=== PATIENT | female | born 1955 | race Caucasian/White ===

== ENCOUNTER 2016-10-19 12:21 | Inpatient (IN) | payer MEDICARE ==
[~2016-10-19] VITALS: Ht 170.2 cm; Wt 99.8 kg
[2016-10-19 12:30] VITALS: BP 154/94
--- NOTE | 2016-10-19 12:30 | NUR ---
[id number]: PT IS 61 YEARS OLD FEMALE ADMITTED ON 515 WITH A HISTORY OF BIPOLAR WITH PSYCHOTIC FEATURES AND HAD 4 PRIOR SUICIDE ATTEMPTS. PT REPORTS THAT FOR THE PAST WEEK, SHE HAS INCREASINGLY PARANOID. ACCORDING TO HISTORY AND PHYSICAL [facility] SUICIDAL IDEATION WITH A PLAN TO EITHER OD ON MEDICATIONS MD JUMP OFF A BUILDING. UPON PPBP-BV-SPEC ASSESSMENT PT IS OBSERVED TEARFUL, RESTLESS, ANXIOUS, WORRIED ABOUT HOSPITALIZATION. EXPLAINED PT THE PROCESS OF HOSPITALIZATION AND ESCORTED PT AROUND THE UNIT. PROVIDED WITH PT'S RIGHT BOOKLET, AND ADVISEMENT. EXPLAINED MEAL TIMES AND FRESH AIR SCHEDULE. NOTIFIED DR. WINNIE LEARY AND DR. POMPA. PT HAS BIPOLAR DISORDER, CANCER HPV, BREAST CANCER, ANXIETY, DEPRESSION, BROKEN CLAVICLE, GERD, HTN. PT IS ALLERGIC ABILIFY, ERICDON, EUFEMIAIEN, LATUDA. BELONGINGS STORED AND DOCUMENTED. PT DOES WANT TO NOTIFY FAMILY. ALL PAPERWORK AND COMPUTER DOCUMENTATION COMPLETE. WILL ENDORSE TO INCOMING NURSE TO DOUBLE CHECK ALL PAPERWORK AND COMPUTER DOCUMENTATION.
[2016-10-19] MEDS ORDERED: LORAZEPAM 0.5 MG TABLET PO PRN (13:00)
[2016-10-19] MEDS ORDERED: TEMAZEPAM 7.5 MG CAPSULE PO PRN (13:00)
[2016-10-19] MEDS ORDERED: ACETAMINOPHEN 325 MG TABLET PO PRN (13:00)
[2016-10-19] MEDS ORDERED: MAG HYDROX/AL HYDROX/SIMETH 30 ML UDC PO PRN (13:00)
[2016-10-19] MEDS ORDERED: MAGNESIUM HYDROXIDE 30 ML UDC PO PRN (13:00)
[2016-10-19] MEDS ORDERED: HYDR-552 PO (14:18)
[2016-10-19] MEDS ORDERED: DIVA500T7 PO (14:18)
[2016-10-19] MEDS ORDERED: GABA600T2 PO (14:18)
[2016-10-19] MEDS ORDERED: LAMO25TA PO (14:20)
[2016-10-19] MEDS ORDERED: QUET25TA PO (14:20)
[2016-10-19] MEDS ORDERED: TRAZ-144 PO (14:20)
[2016-10-19 16:00] VITALS: BP 132/83
[2016-10-19 20:00] VITALS: BP 132/86
[2016-10-19 20:49] VITALS: BP 132/86
[2016-10-19] MEDS: QUETIAPINE FUMARATE 100 MG TABLET PO SCH (21:20)
[2016-10-19] MEDS: HYDROCODONE/APAP 5/325MG 1 EACH TABLET PO PRN (21:26)
[2016-10-19] MEDS ORDERED: DIVALPROEX SODIUM 500 MG TABLET.DR PO SCH (22:00)
[2016-10-20] MEDS: HYDROCODONE/APAP 5/325MG 1 EACH TABLET PO PRN (04:00)
[2016-10-20 07:09] LABS: ALBUMIN 3.7 g/dL (3.4-5.0); BILIRUBIN,TOTAL 0.3 mg/dL (0.2-1.0); CALCIUM, SERUM 9.3 mg/dL (8.5-10.1); TOTAL PROTEIN, SERUM 7.2 g/dL (6.4-8.2)
[2016-10-20 08:00] VITALS: BP 136/85
[2016-10-20 16:00] VITALS: BP 115/88
[2016-10-20 16:10] VITALS: BP 115/88
--- NOTE | 2016-10-20 19:40 | NUR ---
RN OPENING NOTES RECEIVED REPORT FROM DAYSHIFT RN. FOUND Pt AWAKE, RESTING IN BED. NO S/S OF ACUTE DISTRESS OR SOB NOTED. Pt IS A/OX3, CONTINENT, AMBULATORY, VERBAL, ABLE TO MAKE NEEDS KNOWN. MED COMPLIANT. DC PLANNING TOMORROW AM. SAFETY MEASURES IN PLACE. BED LOW, LOCKED, HOB ELEVATED, SIDE RAILS UP. WILL CONTINUE TO MONITOR Pt THROUGHOUT THE NIGHT FOR SAFETY.
[2016-10-20 20:00] VITALS: BP 116/69
[2016-10-20] MEDS: QUETIAPINE FUMARATE 100 MG TABLET PO SCH (21:50)
[2016-10-20] MEDS ORDERED: DIVALPROEX SODIUM 500 MG TABLET.DR PO SCH (22:00)
--- NOTE | 2016-10-21 06:55 | NUR ---
RN CLOSING NOTES NO SIGNIFICANT CHANGES DURING THE NIGHT. NO S/S OF ACUTE DISTRESS OR SOB NOTED DURING THE SHIFT. ALL NEEDS MET AND ATTENDED TO. SAFETY MEASURES CARRIED OUT. WILL ENDORSE TO DAYSHIFT RN FOR Pt's [place] AND SAFETY.
[2016-10-21 08:00] VITALS: BP 118/87
--- NOTE | 2016-10-21 08:25 | NUR ---
[employer]PS RUBBER BOOTS AND SHOES REPAIRER: NOTES PT ANXIOUSLY WANTING TO LEAVE TODAY. CN CALLED DR. POMPA WITH ORDER TO D'C HOLD AND DISCHARGE TO [facility]. PER PT SHE DOESN'T NEED THE PRESCRIPTION FOR [place]. ORDER CARRIED OUT BY CN AND ORDER ACKNOWLEDGED.
--- NOTE | 2016-10-21 09:05 | NUR ---
[employer] ACCESS SERVICES REPRESENTATIVE: NOTES DR. LEARY NOTIFIED BY CN RE: D'C BACK TO [facility]. PT REQUEST FOR A VOUCHER AND OVEN HEATER TO PROVIDE VOUCHER. WILL MONITOR.
--- NOTE | 2016-10-21 09:30 | NUR ---
GPS JUKEBOX CHECKER: D'C INSTRUCTIONS DISCHARGED INSTRUCTIONS GIVEN WITH PRESCRIPTIONS AND VERBALIZED UNDERSTANDING. PT DOESN'T WANT HER BROTHER (AYALA) TO BE CALLED, STATED, "NO I DON'T WANT HIM CALLED BECAUSE HE DIDN'T EVEN KNOW THAT I WAS HERE, I WILL CALL HIM MYSELF LATER."
--- NOTE | 2016-10-21 10:10 | NUR ---
[employer]PS WORKERS COMPENSATION ANALYST: DISCHARGED PT STABLE FOR DISCHARGED, DENIES SI/HI AT TIME OF DISCHARGE. DISCHARGED TO HOME ([facility]) VIA TAXI WITH VOUCHER IN HAND WITH ALL BELONGING/VALUABLES AND MEDICATIONS IN STABLE CONDITION.
--- NOTE | 2016-10-21 14:33 | NUR ---
Initial DC Plan: Patient was currently residing at [address] [phone] . Patient stated that she wanted to return to [facility]. SW contacted the facility and administration stated that she can return upon discharge. SW will follow- up with patient and MD regarding most appropriate discharge plan and will help form a safe and proper discharge. Patient discharged 10/21/2016 to [facility].
--- NOTE | 2016-10-21 14:39 | NUR ---
Psychosocial assessment was reviewed and I concur with the information provided. No changes are necessary. Vinny Nieves, PRN OCCUPATIONAL THERAPIST [id number] Addendum: 10/21/16 at 1439 by VINNY NIEVES SW Amended: Links added.
--- NOTE | 2016-10-21 15:09 | NUR ---
Discharge Note: Patient returned back to [address] [place], [place] [phone] via taxi. Patient denied S/H ideations and V/A hallucinations upon discharge. Patient agreed to follow-up with her psychiatrist. Facilitated info to IDT team who are in agreement with discharge arrangement. The multidisciplinary exitcare form was done, printed, signed, and given to the patient.
== END 2016-10-21 10:00 | DRG 885 ==
LOC: GPS 12:21
PROVIDERS: ADMIT Psychiatry & Neurology Psychosomatic Medicine; ATTEND Nurse Practitioner Acute Care
DX: F31.9 Bipolar disorder, unspecified (principal); K21.9 Gastro-esophageal reflux disease without esophagitis; I10 Essential (primary) hypertension; F41.9 Anxiety disorder, unspecified; C53.9 Malignant neoplasm of cervix uteri, unspecified; C50.919 Malignant neoplasm of unspecified site of unspecified female breast; F17.210 Nicotine dependence, cigarettes, uncomplicated
CPT/HCPCS: 36415; 80053-TC; 80061-TC; 87081-TC; Z7610